=== PATIENT | male | born 1970 | race Caucasian/White ===

== ENCOUNTER 2023-01-02 11:45 | Outpatient (OUT) | payer BC, SELFPAY ==
--- NOTE | 2023-01-02 11:53 | XR_ITS ---
[address] [address] Patient Name: CHRIS BRYANT MRN: [id number] date: 1970 Sex: M Assigned Patient Location: RAD Current Patient Location: [facility] Accession/Order Number: [id number] Exam Date: 01/02/2023 11:58 Report Date: 01/02/2023 12:26 At the request of: CHAI MERCEDES Procedure: XR abdomen 1V EXAMINATION: XR abdomen 1V HISTORY: Kidney Stone N20.0 COMPARISON: No relevant comparison available. FINDINGS: KIDNEY/URETER - RIGHT: Nephrolithiasis KIDNEY/URETER - LEFT: Nephrolithiasis PELVIS: No visible ureteral calcifications. Any visible calcifications favor phleboliths. BOWEL: No abnormal dilation or deviation. BONES: Mild degenerative spondylosis OTHER: Negative. No abnormal gaseous collections. XR/XR abdomen 1V IMPRESSION: Bilateral nephrolithiasis Electronically authenticated by: FRITZ MCDONALD Date: 01/02/2023 12:26
== END 2023-01-02 11:46 | disposition home or self-care (01) ==
LOC: RAD 11:49
PROVIDERS: PCP Family Medicine; Visit Provider Urology
DX: N20.0 Calculus of kidney (principal)
CPT/HCPCS: 74018

== ENCOUNTER 2023-01-30 00:50 | Emergency (ER) | payer BC, SELFPAY ==
[2023-01-30 00:53] VITALS: BP 153/90; PULSE 66; RESP 16; TEMP 36.4; O2SAT 98; BMI 26.9
--- NOTE | 2023-01-30 01:02 | ED_ITS ---
HPI - Male Genitourinary General Chief complaint: Urogenital-Male Stated complaint: FLANK BACK PAIN Time Seen by Provider: 01/30/23 01:02 History of Present Illness HPI Narrative: past history of kidney stones. Presents with RLQ/flank pain that started about one hour before arrival. pain 8/10. No urinary symptoms or fever Related Data Allergies Allergy/AdvReac Type Severity Reaction Status Date / Time No Known Drug Allergies Allergy Verified 01/30/23 00:56 Review of Systems ROS Status of ROS 10 or more systems reviewed and unremarkable except as noted in history and below PFSH PFS Social History Smoking status: Former smoker Exam Constitutional Vital Signs, click to edit/add: Last Vital Signs Temp 97.6 F 01/30/23 00:53 Pulse 69 01/30/23 02:39 Resp 16 01/30/23 00:53 BP 153/90 H 01/30/23 00:53 Pulse Ox 97 01/30/23 02:39 O2 Del Method Room Air 01/30/23 00:53 Common normals: no apparent distress, average body habitus, oriented x3, no limitations and healthy appearing Eye Common normals: PERRL and EOMs intact bilaterally Respiratory Common normals: normal respiratory effort, no retractions, no use of accessory muscles and clear to auscultation bilaterally GI Common normals: Normal to inspection, nondistended, normoactive bowel sounds present, soft to palpation and non-tender Extremity Common normals: normal to inspection and full ROM Neuro Common normals: oriented x3, CN's II-XII intact bilaterally, moves all extremities and no focal motor deficits Psych Appearance: grossly normal Course Vital Signs Vital signs: Vital Signs Temperature 97.6 F 01/30/23 00:53 Pulse Rate 66 01/30/23 00:53 Respiratory Rate 16 01/30/23 00:53 Blood Pressure 153/90 H 01/30/23 00:53 Pulse Oximetry 98 01/30/23 00:53 Oxygen Delivery Method Room Air 01/30/23 00:53 Temperature 97.6 F 01/30/23 00:53 Pulse Rate 69 01/30/23 02:39 Respiratory Rate 16 01/30/23 00:53 Blood Pressure 153/90 H 01/30/23 00:53 Pulse Oximetry 97 01/30/23 02:39 Oxygen Delivery Method Room Air 01/30/23 00:53 MDM - Male Genitourinary MDM Narrative Medical decision making narrative: patient presents with right renal colic. CT with 6mm stone mid ureter. UA clear. Patient's pain relieved. Discharged home with a [place] and flomax. He is to follow up with his Urologist Lab Data Labs: Lab Results 01/30/23 Range/Units 01:04 WBC 8.9 (4.0-11.0) 10^3/uL RBC 4.63 L (4.70-6.10) 10^6/uL Hgb 14.1 (14.0-18.0) g/dL Hct 42.2 (42.0-54.0) % MCV 91.1 (80.0-94.0) fL MCH 30.5 (25.9-34.0) pg MCHC 33.4 (29.9-35.2) g/dL RDW 12.4 (11.0-15.0) % Plt Count 219 (150-450) 10^3/uL MPV 10.1 (9.5-13.5) fL Neut % (Auto) 57.9 (43.0-75.0) % Lymph % (Auto) 31.6 (20.5-60.0) % [place] % (Auto) 7.0 (1.7-12.0) % Eos % (Auto) 2.5 (0.9-7.0) % Baso % (Auto) 0.7 (0.2-2.0) % Neut # (Auto) 5.2 (1.4-6.5) 10^3/uL Lymph # (Auto) 2.8 (1.2-3.8) 10^3/uL [place] # (Auto) 0.6 (0.3-0.8) 10^3/uL Eos # (Auto) 0.2 (0.0-0.7) 10^3/uL Baso # (Auto) 0.1 (0.0-0.1) 10^3/uL Abs Immat Gran (auto) 0.03 (0.00-0.03) 10^3/uL Imm/Tot Granulo (auto) 0.3 (0.0-0.5) % Sodium 140 (136-145) mmol/L Potassium 3.7 (3.5-5.1) mmol/L Chloride 106 (98-107) mmol/L Carbon Dioxide 26.4 (21.0-32.0) mmol/L Anion Gap 11.3 BUN 21.0 H (7.0-18.0) mg/dL Creatinine 1.50 H (0.70-1.30) mg/dL Est GFR ( Amer) 59 L (>=60) Est GFR (Non-Af Amer) 49 L (>=60) BUN/Creatinine Ratio 14.0 Glucose 100 (74-106) mg/dL Lactate 0.6 (0.4-2.0) mmol/L Calcium 9.1 (8.5-10.1) mg/dL Total Bilirubin 0.3 (0.2-1.0) mg/dL AST 20 (15-37) U/L ALT 35 (16-63) U/L Alkaline Phosphatase 83 (46-116) U/L Total Protein 7.1 (6.4-8.2) g/dL Albumin 3.9 (3.4-5.0) g/dL Globulin 3.2 g/dL Albumin/Globulin Ratio 1.2 Lipase 134.0 (73.0-393.0) U/L Urine Color Lt. yellow (YELLOW) Urine Clarity Clear (CLEAR) Urine pH 6.0 (5.0-9.0) Ur Specific Branch 1.025 (1.005-1.025) Urine Protein Negative (NEG/TRACE) mg/dL Urine Glucose (UA) Negative (NEGATIVE) mg/dL Urine Ketones Negative (NEGATIVE) mg/dL Urine Occult Blood Trace-i (NEGATIVE) Urine Nitrite Negative (NEGATIVE) Urine Bilirubin Negative (NEGATIVE) Urine Urobilinogen 0.2 (0.2-1.0) EU/dL Ur Leukocyte Esterase Negative (NEGATIVE) Urine RBC 0-2 (0-2) #/HPF Urine WBC None seen (NONE SEEN) #/HPF Ur Squamous Epith Cells None seen (NONE/RARE) #/LPF Urine Crystals None seen (None Seen) #/HPF Urine Bacteria Trace A (NONE SEEN) #/HPF Urine Casts None seen (NONE SEEN) #/LPF Urine Mucus None seen (NONE SEEN) Ur Culture Indicated? No Imaging Data CT scan - abdomen: Attestation: I have reviewed the pertinent imaging results. My impression: [email or web address]?file=#[email or web address] [email or web address]?file=#page=2 Find: Highlight all Match case Current View [email or web address]?file=#[email or web address]&zoom=auto,-633 Page: of 2 Current View [email or web address]?file=#page=1&zoom=auto,-633 [place] [id number] Patient Name: CHRIS BRYANT MRN: [id number] date: 1970 Sex: M Assigned Patient Location: ER Current Patient Location: ER Accession/Order Number: [id number] Exam Date: 01/30/2023 01:35 Report Date: 01/30/2023 01:56 At the request of: JUN LUCIANO Procedure: CT abdomen pelvis wo con EXAM: CT abdomen pelvis wo con HISTORY: right renal colic COMPARISON: CT abdomen pelvis, 10/03/2020. TECHNIQUE: Nonenhanced CT imaging the abdomen and pelvis was performed with sagittal and coronal reconstructions. FINDINGS: CT ABDOMEN: The lung bases are clear. Cardiac size is normal. There is no pericardial effusion. The liver, gallbladder, pancreas, spleen, adrenal glands, aorta, IVC, stomach and small bowel have a grossly unremarkable nonenhanced appearance. There is moderate right hydronephrosis due to a 6 mm obstructing stone in the proximal right ureter at the lower L3 level on image 60 of series 3. Several additional stones are noted in both kidneys. The left kidney is otherwise unremarkable. CT PELVIS: The appendix, pelvic small bowel loops, urinary bladder and prostate are unremarkable. There is mild colonic diverticulosis. No free fluid, loculated fluid or free air is seen in the abdomen or pelvis. No acute osseous abnormality or suspicious bony lesion is seen. IMPRESSION: 1. Moderate right hydronephrosis due to a 6 mm proximal right ureteral stone at the lower L3 level. Several additional stones are noted in both kidneys. No additional acute findings are seen in the abdomen or pelvis. 2. Mild colonic diverticulosis. Electronically authenticated Discharge Plan Discharge Chief Complaint: Urogenital-Male Clinical Impression: Kidney stone on right side Patient Disposition: Home, Self-Care Instructions: Kidney Stones (ED) Additional Instructions: follow up with Dr gallagher Stand Alone Forms: Portal Instructions Referrals: MICHOACANO SCHWARTZ [Primary Care Provider] - 1 week
--- NOTE | 2023-01-30 01:05 | CT_ITS ---
The [address] [address] Patient Name: CHRIS BRYANT MRN: [id number] date: 1970 Sex: M Assigned Patient Location: ER Current Patient Location: ER Accession/Order Number: [id number] Exam Date: 01/30/2023 01:35 Report Date: 01/30/2023 01:56 At the request of: JUN LUCIANO Procedure: CT abdomen pelvis wo con EXAM: CT abdomen pelvis wo con HISTORY: right renal colic COMPARISON: CT abdomen pelvis, 10/03/2020. TECHNIQUE: Nonenhanced CT imaging the abdomen and pelvis was performed with sagittal and coronal reconstructions. FINDINGS: CT ABDOMEN: The lung bases are clear. Cardiac size is normal. There is no pericardial effusion. The liver, gallbladder, pancreas, spleen, adrenal glands, aorta, IVC, stomach and small bowel have a grossly unremarkable nonenhanced appearance. There is moderate right hydronephrosis due to a 6 mm obstructing stone in the proximal right ureter at the lower L3 level on image 60 of series 3. Several additional stones are noted in both kidneys. The left kidney is otherwise unremarkable. CT PELVIS: The appendix, pelvic small bowel loops, urinary bladder and prostate are unremarkable. There is mild colonic diverticulosis. No free fluid, loculated fluid or free air is seen in the abdomen or pelvis. No acute osseous abnormality or suspicious bony lesion is seen. CT/CT abdomen pelvis wo con IMPRESSION: 1. Moderate right hydronephrosis due to a 6 mm proximal right ureteral stone at the lower L3 level. Several additional stones are noted in both kidneys. No additional acute findings are seen in the abdomen or pelvis. 2. Mild colonic diverticulosis. Electronically authenticated by: LAMAR PIERRE Date: 01/30/2023 01:56
--- NOTE | 2023-01-30 01:08 | PC.NURSE ---
patient states he developed right side flank pain approx 45 mins ago, states he was asleep and the pain woke him up. denies any other urinary sypmtoms. states he has a history of frequent kidney stones and this feels the same. denies any nausea or vomiting.
[2023-01-30] MEDS: KETOROLAC TROMETHAMINE 30 MG/ML VIAL IVP (01:22)
[2023-01-30] MEDS: 0.9 % SODIUM CHLORIDE 1,000 ML 999 ML IV (01:22)
[2023-01-30] MEDS: ONDANSETRON PF 4 MG/2 ML VIAL IV (01:23)
[2023-01-30] MEDS: ORPHENADRINE 60 MG/ 2 ML VIAL IV (01:23)
[2023-01-30 01:42] LABS: Basophils Absolute Auto 0.1 10^3/uL (0.0-0.1); Basophils Percent Auto 0.7 % (0.2-2.0); Eosinophils Absolute Auto 0.2 10^3/uL (0.0-0.7); Eosinophils Percent Auto 2.5 % (0.9-7.0); Hematocrit 42.2 % (42.0-54.0); Hemoglobin 14.1 g/dL (14.0-18.0); Immature Granulocytes Abs Auto 0.03 10^3/uL (0.00-0.03); Immature Granulocytes Pct Auto 0.3 % (0.0-0.5); Lymphocytes Absolute Auto 2.8 10^3/uL (1.2-3.8); Lymphocytes Percent Auto 31.6 % (20.5-60.0); Mean Corpuscular HGB Conc 33.4 g/dL (29.9-35.2); Mean Corpuscular Hemoglobin 30.5 pg (25.9-34.0); Mean Corpuscular Volume 91.1 fL (80.0-94.0); Mean Platelet Volume 10.1 fL (9.5-13.5); Monocytes Absolute Auto 0.6 10^3/uL (0.3-0.8); Neutrophils Absolute Auto 5.2 10^3/uL (1.4-6.5); Neutrophils Percent Auto 57.9 % (43.0-75.0); Platelet Count 219 10^3/uL (150-450); Red Blood Count 4.63 10^6/uL (4.70-6.10); Red Cell Distribution Width 12.4 % (11.0-15.0); White Blood Count 8.9 10^3/uL (4.0-11.0)
[2023-01-30 01:45] LABS: Bilirubin Urine NEGATIVE (NEGATIVE); Blood Urine TRACE-I (NEGATIVE); Clarity Urine CLEAR (CLEAR); Color Urine LT. YELLOW (YELLOW); Glucose Urine UA NEGATIVE (NEGATIVE); Ketones Urine NEGATIVE (NEGATIVE); Leukocyte Esterase Urine NEGATIVE (NEGATIVE); Nitrite Urine NEGATIVE (NEGATIVE); Protein Urine NEGATIVE (NEG/TRACE); Specific Gravity Urine 1.025 (1.005-1.025); Urobilinogen Urine 0.2 EU/dL (0.2-1.0)
[2023-01-30 01:46] LABS: Urine Microscopic Indicated YES
[2023-01-30 01:54] LABS: Alanine Aminotransferase 35 U/L (16-63); Albumin Globulin Ratio 1.2; Albumin Level 3.9 g/dL (3.4-5.0); Alkaline Phosphatase 83 U/L (46-116); Anion Gap 11.3; Aspartate Amino Transferase 20 U/L (15-37); Bilirubin Total 0.3 mg/dL (0.2-1.0); Calcium 9.1 mg/dL (8.5-10.1); Carbon Dioxide 26.4 mmol/L (21.0-32.0); Chloride 106 mmol/L (98-107); Estimated GFR (African America 59 (>=60); Estimated GFR (Non-African Ame 49 (>=60); Globulin 3.2 g/dL; Glucose 100 mg/dL (74-106); Potassium 3.7 mmol/L (3.5-5.1); Sodium 140 mmol/L (136-145); Total Protein 7.1 g/dL (6.4-8.2)
[2023-01-30 01:56] LABS: Bacteria Urine TRACE #/HPF (NONE SEEN); Cast Seen? NONE SEEN #/LPF (NONE SEEN); Crystals Seen? None Seen #/HPF (None Seen); Lactate/Lactic Acid 0.6 mmol/L (0.4-2.0); Mucus Urine NONE SEEN (NONE SEEN); RBC Urine 0-2 #/HPF (0-2); Squamous Epithelial Cell Urine NONE SEEN #/LPF (NONE/RARE); Urine Culture Indicated NO; WBC Urine NONE SEEN #/HPF (NONE SEEN)
[2023-01-30] MEDS: FENTANYL CITRATE/PF 100 MCG/2 ML VIAL IV (02:33)
[2023-01-30 02:39] VITALS: PULSE 69; O2SAT 97
[2023-01-30 03:29] VITALS: PULSE 60; RESP 16; O2SAT 95
[2023-01-30] MEDS: TAMSULOSIN HCL 0.4 MG CAPSULE PO (03:40)
== END 2023-01-30 03:51 | disposition home or self-care (01) ==
PROVIDERS: Emergency Provider Internal Medicine; PCP Family Medicine
DX: N20.0 Calculus of kidney (principal); Z87.891 Personal history of nicotine dependence; Z87.442 Personal history of urinary calculi
CPT/HCPCS: 36415; 74176; 80053; 81001; 83605; 83690; 85025; 96374; 96375; 99285

== ENCOUNTER 2023-02-02 10:44 | Outpatient (OUT) | payer BC, SELFPAY ==
--- NOTE | 2023-02-02 | US_ITS ---
The [address] [address] Patient Name: CHRIS BRYANT MRN: [id number] date: 1970 Sex: M Assigned Patient Location: US Current Patient Location: Accession/Order Number: [id number] Exam Date: 02/02/2023 11:20 Report Date: 02/02/2023 13:01 At the request of: GIANCARLO CHAVARRIA Procedure: US renal bladder US renal bladder EXAM DATE: 02/02/2023 9:20 AM MDT COMPARISON: CT abdomen and pelvis without contrast 01/30/2023. INDICATION: Flank pain. TECHNIQUE: Real-time ultrasound scanning of the kidneys and bladder was performed by the animal laboratory helper. Buck Presser static images are submitted for review. FINDINGS: Right Kidney: The right kidney measures 11.5 x 5.6 x 6.9 cm. Normal echogenicity. Moderate hydronephrosis with dilation of the central and peripheral calyces. Renal stone measures 7 x 4 x 8 mm. Obstructive proximal right ureteral stone seen on comparison CT is not identified, possibly due to bowel gas obscuring the ureter regions. No obvious contour deforming lesion or solid renal mass. Renal cortex measures 1.1 cm. Left Kidney: The left kidney measures 11.3 x 4.8 x 5 cm. Normal echogenicity. No hydronephrosis. No shadowing calculi. Nonobstructive renal calculi measure 3 x 2 x 3 mm and 6 x 9 x 8 mm. Renal cortex measures 1.2 cm. Bladder: Bladder volume measures up to 330 mL of a 15 mL post void residual. No focal or diffuse bladder wall thickening noted. Bilateral ureteral jets are visualized. Prostate measures 4.1 x 3 x 3.6 cm. US/US renal bladder IMPRESSION: 1. Moderate right hydronephrosis. Of note, both ureteral jets are visualized. 2. Visualized bilateral renal calculi are nonobstructive. 3. Ureters are obscured by bowel gas. Region of previously CT demonstrated obstructive proximal right ureteral stone is not visualized. 4. No left hydronephrosis. Electronically authenticated by: STACIE BARRETT Date: 02/02/2023 13:01
--- NOTE | 2023-02-02 10:50 | XR_ITS ---
[address] [address] Patient Name: CHRIS BRYANT MRN: [id number] date: 1970 Sex: M Assigned Patient Location: US Current Patient Location: Accession/Order Number: [id number] Exam Date: 02/02/2023 10:50 Report Date: 02/03/2023 05:51 At the request of: GIANCARLO CHAVARRIA Procedure: XR abdomen 1V EXAMINATION: XR abdomen 1V HISTORY: Kidney stones COMPARISON: 01/02/2023, 01/30/2023 FINDINGS: KIDNEY/URETER - RIGHT: 6 mm calcification lateral to the L3-L4 transverse process. Additional calcification lower pole of the right kidney KIDNEY/URETER - LEFT: Nephrolithiasis PELVIS: No visible ureteral calcifications. Any visible calcifications favor phleboliths. BOWEL: No abnormal dilation or deviation. BONES: No acute abnormality. OTHER: Negative. No abnormal gaseous collections. XR/XR abdomen 1V IMPRESSION: Suspected right ureterolith with bilateral nephrolithiasis Electronically authenticated by: FRITZ MCDONALD Date: 02/03/2023 05:51
== END 2023-02-02 10:45 | disposition home or self-care (01) ==
LOC: US 10:45
PROVIDERS: PCP Family Medicine; Visit Provider Urology
DX: N20.0 Calculus of kidney (principal)
CPT/HCPCS: 74018; 76770

== ENCOUNTER 2023-02-08 12:25 | Outpatient (OUT) | payer BC, SELFPAY | END 2023-02-08 12:26 | disposition home or self-care (01) | LOC: PST 12:25 | PROVIDERS: PCP Family Medicine; Visit Provider Urology | DX: Z01.818 Encounter for other preprocedural examination (principal); N20.1 Calculus of ureter ==

== ENCOUNTER 2023-02-13 11:37 | Day surgery (SDC) | payer BC, SELFPAY ==
--- NOTE | 2023-02-08 12:38 | ECG_ITS ---
The [facility] Test Date: 2023-02-08 Pat Name: CHRIS BRYANT Department: Room: - Gender: Male Log Turner: : 1970 Requested By: Order Number: [id number] Reading MD: SENAIT VILLANUEVA Measurements Intervals [place] Rate: 65 P: 38 ME: 207 QRS: 22 QRSD: 108 T: 39 QT: 379 QTc: 395 Interpretive Statements SINUS RHYTHM No previous ECG available for comparison Electronically Signed On 02-09-2023 11:06:41 EDT by SENAIT VILLANUEVA
[2023-02-08 12:52] VITALS: BP 124/73; PULSE 65; RESP 16; TEMP 36.5; O2SAT 97; BMI 28.1
[2023-02-13] VITALS (9 sets, daily range): BP systolic 129–156; BP diastolic 82–101; PULSE 62–87; RESP 14–18; TEMP 36.1–36.3; O2SAT 95–98
[2023-02-13] MEDS: LACTATED RINGER'S SOLUTION 1,000 ML 50 ML IV (12:25)
[2023-02-13] MEDS: CEFAZOLIN SODIUM/DEXTROSE,ISO 2 GM/50 ML PIGGYBACK IV (12:41)
[2023-02-13] MEDS: IOHEXOL 240 MG/ML - 10 ML VIAL INJ (13:13)
--- NOTE | 2023-02-13 14:21 | PM.URSON ---
Urology Surgery Operative Note Operative Note Procedure Date: 02/13/23 Time Out Performed: yes Pre-op Diagnosis: Right ureteral stone with hydronephrosis Post-op Diagnosis: same as pre-op Procedures performed: Cystoscopy, right retrograde pyelogram, ureteroscopy laser lithotripsy/stone extraction, stent placement Anesthesia: GETA (LMA, Dr. Ron) Primary Surgeon: Roseann Aragon Complications: none Estimated blood loss (mL): 0 Findings: Mild to moderate bilobar prostatic hypertrophy. R RPG- filling defect at proximal ureter, no contrast passing, consistent with known stone. Edematous, friable pale scarred ring at proximal ureter, likely secondary to stone, patent by the end of the case. Yellow crystallized ureteral stone pushed up into kidney underwent uncomplicated laser lithotripsy and stone extraction No other renal stones noted. Moderately blown out calyces, complex collecting system, with moderate hydronephrosis, no extravasation Specimens: right kidney stone Drains: 6Fr x 22-30 cm JJ right ureteral stent Incision: none Indications for Procedures: 52 year old male recently diagnosed with a 6 mm right proximal ureteral stone with moderate hydronephrosis and acute renal injury presents for definitive stone treatment. After discussion of risks/benefits of management options, he elected to proceed with cystoscopy, right retrograde pyelogram, ureteroscopy with laser lithotripsy/stone extraction, possible ureteral stent placement under general anesthesia. Risks were discussed including but not limited to bleeding, pain, infection, damage to surrounding structures, inability to treat the stone/place a stent, and need for additional procedures. The patient understands the stent is not permanent and needs to be removed or exchanged within 3 months to prevent encrustation, infection, invasive procedures and/or permanent renal damage. Detailed description of Procedure: After informed consent was obtained, the patient was brought to the operating room and transferred onto the operating table in supine position. Sequential compression devices were placed on bilateral lower extremities. The patient received the appropriate dose of preoperative IV antibiotics and general anesthesia LMA was induced. They were positioned in modified dorsolithotomy with the appropriate pressure points padded, prepped, and draped in the usual sterile fashion for this procedure. An operative safety timeout was performed confirming the patient's identity, laterality and procedure, and all present agreed to proceed. I began by inserting a 22 [place] rigid cystoscope with 30 degree lens into the patient's urethra and bladder without difficulty. There were no bladder tumors, lesions, stones or foreign bodies. Bilateral ureteral orifices were orthotopic and patent. I turned my attention to the right ureteral orifice and a 6- [place] open-ended catheter was inserted into the ureteral orifice and dilute contrast was injected for retrograde pyelogram with findings as above. A Sensor wire was inserted into the ureter up to the renal pelvis confirmed on fluoroscopy. An 11/13 [place]ayan by 36 cm ureteral access sheath was inserted over the wire in a sequential fashion to gain access to the stone. Next a flexible ureteroscope was inserted through the sheath and advanced to the ureter under fluoroscopic guidance until the stone was reached. Stone was not clearly visible but severe edema and tightness was encountered, able to navigate through with ureteroscope. The stone was found pushed up into the renal pelvis. A 275 ?m holmium laser fiber was used to break the stone into fragments which were then removed with a 2.2 tipless nitinol basket. After the stone was adequately treated, a full renoscopy was performed confirming no significant residual stones or fragments remained. Contrast was injected to assist with mapping for the renoscopy. The wire was reinserted and a pull down ureteroscopy was performed confirming no stones remained in the ureter. The wire was backloaded through the cystoscope and 6Fr x 22-30cm JJ variable length ureteral stent was advanced over the wire, noting adequate curl in the renal pelvis and bladder on fluoroscopic and direct visualization. The bladder was drained and inspected one final time to ensure adequate position of stent and no undue trauma to the bladder was done. The stones were sent for pathology and the cystoscope was removed. The patient tolerated the procedure well without complication. The patient was awakened from anesthesia and sent to PACU in stable condition. Plan: Discharge home with stent pain medications. Follow up next week for in-office cystoscopy, stent removal. Other Provider present: No Post Operative care instructions: See discharge instructions Attending Doc Confirm Attending Attestation: Yes
[2023-02-13] MEDS: HYDROMORPHONE HCL 0.5 MG/0.5 ML SYRINGE IV (14:45)
--- NOTE | 2023-02-13 14:54 | PC.NURSE ---
medicated for pain with IV Dilaudid; continuous pulse oximetry on
[2023-02-13] MEDS: OXYBUTYNIN chloride 5 MG TABLET PO (15:00)
--- NOTE | 2023-02-13 15:11 | PC.NURSE ---
Denies urge to void
--- NOTE | 2023-02-13 15:45 | PC.NURSE ---
Voided red urine with c/o burning
[2023-02-20 19:09] LABS: Calcium Oxalate Dihydrate 80 % (.); Calcium Oxalate Monohydrate 20 % (.); Size 3x3 mm (.)
== END 2023-02-13 15:47 | disposition home or self-care (01) ==
PROVIDERS: PCP Family Medicine; Visit Provider Urology
PROC: (CPT 52356; principal; 2023-02-13 12:30)
DX: N13.2 Hydronephrosis with renal and ureteral calculous obstruction (principal); N40.1 Benign prostatic hyperplasia with lower urinary tract symptoms; R31.21 Asymptomatic microscopic hematuria; Z87.442 Personal history of urinary calculi
CPT/HCPCS: 52356; 74420; 82365; 93005; 99999; C1874; J1170; J2704; Q9966

== ENCOUNTER 2023-05-30 08:47 | Outpatient (OUT) | payer BC, SELFPAY ==
--- NOTE | 2023-05-30 08:51 | US_ITS ---
The [address] [address] Patient Name: CHRIS BRYANT MRN: [id number] date: 1970 Sex: M Assigned Patient Location: US Current Patient Location: Accession/Order Number: [id number] Exam Date: 05/30/2023 09:10 Report Date: 05/31/2023 06:59 At the request of: GIANCARLO CHAVARRIA Procedure: US renal BI EXAMINATION: US renal BI HISTORY: kidney stones N20.0 COMPARISON: CT abdomen pelvis 01/30/2023 TECHNIQUE: Ultrasound examination was performed of the kidneys and urinary bladder. FINDINGS: RIGHT KIDNEY: 6 mm nonobstructing stone within inferior pole. No hydronephrosis or mass. Color Doppler demonstrates blood flow within the kidney. Kidney: 11.1 x 5.3 x 4.9 cm LEFT KIDNEY: 5 mm nonobstructing stone within inferior pole. No hydronephrosis or mass. Color Doppler demonstrates blood flow within the kidney. Kidney: 12.1 x 5.9 x 6.1 cm BLADDER: No visible wall thickening, mass, or calculi. US/US renal BI IMPRESSION: 1. Bilateral nonobstructing nephrolithiasis. 2. Resolution of previously seen right hydronephrosis. Electronically authenticated by: FAUSTINO LEON Date: 05/31/2023 06:59
== END 2023-05-30 08:48 | disposition home or self-care (01) ==
LOC: US 08:47
PROVIDERS: PCP Family Medicine; Visit Provider Urology
DX: N13.2 Hydronephrosis with renal and ureteral calculous obstruction (principal)
CPT/HCPCS: 76775